=== PATIENT | male | born 1990 | race Caucasian/White ===

== ENCOUNTER 2016-09-18 00:36 | Emergency (ER) | payer OTHER ==
[2016-09-18] MEDS ORDERED: ONDANSETRON 4MG/2ML VIAL (J2405) As Ordered ONE (01:46)
[2016-09-18] MEDS ORDERED: ONDANSETRON 4 MG ORAL DISINTEGRATING TAB (S0181) As Ordered ONE (02:51)
--- NOTE | 2016-09-18 03:00 | EDDOCDS ---
Physician Documentation [facility] Name: Guillaume Joseph Age: 25 yrs Sex: Male : 1990 Arrival Date: 09/18/2016 Time: 00:36 Bed 8 Private MD: Disposition: 09/18 02:41 Critical Care: Critical care not applicable. pc Disposition: 09/18/16 02:42 Discharged to Home/Self Care. Impression: Other viral enteritis. - Condition is Stable. - Discharge Instructions: Clear Liquid Diet, Viral Gastroenteritis. - Prescriptions for ZOFRAN ODT 4 mg - dissolve 1 tablet by ORAL route 4 times per day As needed do not chew, do not swallow whole; 10 tablet. - Medication Reconciliation, Local Pharmacy Hours form. - Follow up: Dain Dumont [facility]; When: Today; Reason: Recheck today's complaints, Continuance of care. - Problem is an ongoing problem. - Symptoms have improved. HPI: 01:46 This 25 yrs old Male presents to ER via Walkin/Carried/Asstd with complaints pc of Nausea/Vomiting/Diarrhea. 01:46 The history is obtained from the patient. The patient presents with vomiting, diarrhea. pc The symptoms began He started with nausea and diarrhea 5 days ago but did not seek medical attention. He began to vomit last night which prompted his ED visit. He denies sick contacts, denies fevers or chills. He has only abdominal pain, described as cramps, just prior to emesis or diarrhea. The patient has not experienced similar symptoms in the past. The patient has not recently seen a physician. Historical: - Allergies: no known allergies; - Home Meds: 1. none - PMHx: none; - PSHx: none; - The history from nurses notes was reviewed: and I agree with what is documented. - Social history: Smoking status: Patient states was never smoker of tobacco. No barriers to communication noted, The patient speaks fluent Spanish, Speaks appropriately for age. - : The pt / caregiver states he / she is not on anticoagulants. Home medication list is obtained from the patient. - Hospitalizations: : No recent hospitalization is reported. - Exposure Risk Screening:: None identified. - Immunization history:: All immunizations up-to-date. - Family history: Not pertinent. - Social history:: the patient is a non-smoker, the patient drinks alcohol. ROS: 01:46 All systems are negative except if listed. The constitutional, cardiovascular, pc respiratory and neurological components are also addressed in the HPI. Exam: 01:46 General Appearance: alert, no acute distress. pc 01:46 ENT: ear, nose and throat normal, pharynx normal. 01:46 Neck: The exam reveals no acute abnormalities. ROM is normal and painless. No nuchal rigidity is noted.. 01:46 Respiratory: no respiratory distress, normal breath sounds, chest non-tender. 01:46 Cardiovascular: regular pulse rate, regular heart rhythm, normal heart sounds, equal and full pulses bilaterally. 01:46 Abdomen: soft, non-tender, no organomegaly, bowel sounds hyperactive. 01:46 Back: normal inspection. 01:46 Skin: skin color is normal, warm, dry. 01:46 Extremities: The extremities have a grossly normal appearance, are non-tender, without acute ROM abnormalities. 01:46 Neuro: oriented x 3, cranial nerves normal as tested, no motor deficits, no sensory deficits. Vital Signs: 00:45 Pulse 90; Resp 16; Temp 97.7(T); Pulse Ox 97% on R/A; Weight 92.99 kg / 205.01 lbs (R); dsf Height 5 ft. 10 in. (177.80 cm); Pain 8/10; 00:56 BP 122 / 71; kas2 02:58 BP 130 / 72; Pulse 85; Resp 18; Temp 98.1(O); Pulse Ox 99% on R/A; Pain 0/10; kas2 00:45 Body Mass Index 29.41 (92.99 kg, 177.80 cm) dsf MDM: 01:45 IV Saline Lock ordered. pc 01:45 NS 0.9% 500 ml IV at bolus once ordered. pc 01:45 Ondansetron 4 mg IVP once ordered. pc 01:46 Differential diagnosis: Gastroenteritis. Plan: meds, IVF. pc 02:33 Financial registration complete. hs2 02:41 Data reviewed: old medical records, vital signs, nurses notes. Test interpretation: pc none. The patient has been re-examined and re-evaluated. The patient's symptoms have markedly improved after treatment. Disposition: The historical points, examination findings, and any diagnostic results supporting the provided diagnosis, were discussed with the patient or legal guardian. The need for outpatient follow up with the provider listed on their discharge instructions was discussed. They were encouraged to return to [facility], or the nearest ED, if symptoms worsen/persist, or for any other questions/concerns. 02:41 Ondansetron ODT Oral Disintegrating Tablet 4 mg PO Per package directions; dispense 2 pc to go: 1 po q4h prn ordered. Administered Medications: 01:53 Drug: NS 0.9% 500 ml [sodium chloride 0.9 % intravenous solution] Route: IV; Rate: kas2 bolus; Site: left antecubital; 02:59 Follow up: IV Status: Completed infusion; IV Intake: 500ml kas2 01:53 Drug: Ondansetron 4 mg [ondansetron HCl 2 mg/mL intravenous solution (2 mL)] Route: kas2 IVP; Site: left antecubital; 02:58 Drug: Ondansetron ODT 4 mg [ondansetron 4 mg disintegrating tablet (1 tabs)] Route: PO; kas2 Signatures: Elliot Morrison MD MD pc Fuller, Desiree, RN RN dsf Rosemarie Vargas, [facility] Reg hs2 Lashonda Julio RN RN kas2 TERESAD
--- NOTE | 2016-09-18 03:00 | EDDOCDS ---
Nurse's Notes [facility] Name: Guillaume Joseph Age: 25 yrs Sex: Male : 1990 Arrival Date: 09/18/2016 Time: 00:36 Bed 8 Private MD: Diagnosis: Other viral enteritis Presentation: 09/18 00:43 Presenting complaint: Patient states: vomiting, diarrhea and nausea for the past week. dsf Risk factors: the patient reports not having a history of previous torsion. Adult Sepsis Screening:. Suicide/Homicide risk assessment- the patient denies having any suicidal and/or homicidal ideations and does not present with any other emotional, behavioral or mental health complaints. 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 Transition of care: patient was not received from another setting of care. 00:43 Method Of Arrival: Walkin/Carried/Asstd dsf 00:43 Acuity: ARCELIA Level 3 dsf Triage Assessment: 00:45 General: Appears in no apparent distress, Behavior is appropriate for age, cooperative. dsf Pain: Location: abdomen Pain currently is 8 out of 10 on a pain scale. Quality of pain is described as stinging. HIV screening NA for this visit active duty . GI: Reports diarrhea, nausea, vomiting. 00:48 GI: Pt is actively vomiting clear fluid. dsf Historical: - Allergies: no known allergies; - Home Meds: 1. none - PMHx: none; - PSHx: none; - The history from nurses notes was reviewed: and I agree with what is documented. - Social history: Smoking status: Patient states was never smoker of tobacco. No barriers to communication noted, The patient speaks fluent Greenlandic, Speaks appropriately for age. - : The pt / caregiver states he / she is not on anticoagulants. Home medication list is obtained from the patient. - Hospitalizations: : No recent hospitalization is reported. - Exposure Risk Screening:: None identified. - Immunization history:: All immunizations up-to-date. - Family history: Not pertinent. - Social history:: the patient is a non-smoker, the patient drinks alcohol. Screenin:01 Screening information is obtained from the patient. Fall risk: No risks identified. kas2 Assistance ADL's: requires no assistance with activities of daily living. Abuse/DV Screen: The patient / caregiver reports he/she is: not in a situation that causes fear, pain or injury. Nutritional screening: No deficits noted. Advance Directives: Currently, there is no health care proxy. There is no active DNR order. There is no living will. There is no Power of Strategic Procurement Manager. home support is adequate. Assessment: 00:56 General: Appears in no apparent distress, uncomfortable, well nourished, well groomed, kas2 Behavior is appropriate for age, cooperative. Pain: Location: abdomen Pain currently is 6 out of 10 on a pain scale. Neurological: Level of Consciousness is awake, alert, Oriented to person, place, time. Cardiovascular: Capillary refill < 3 seconds Heart tones S1 S2 present Rhythm is regular. Respiratory: Airway is patent Respiratory effort is even, unlabored, Respiratory pattern is regular, symmetrical, Breath sounds are clear bilaterally. GI: Abdomen is flat, non- distended Bowel sounds present X 4 quads. Abd is tender to palpation X 4 quads. Derm: Skin is intact, Skin is Skin is pink, warm & dry. Skin temperature is warm. 01:54 General: Patient laying in bed sleeping with at bedside. No apparent distress. kas2 Appears comfortable. Airway patent and respiratory effort even and unlabored. Call denny within reach. Will continue to monitor.. 02:28 General: Patient states he is feeling much better and is no longer nauseated. Denies kas2 abdominal pain at this time. Call denny within reach. Will continue to monitor.. Vital Signs: 00:45 Pulse 90; Resp 16; Temp 97.7(T); Pulse Ox 97% on R/A; Weight 92.99 kg (R); Height 5 ft. dsf 10 in. (177.80 cm); Pain 8/10; 00:56 BP 122 / 71; kas2 02:58 BP 130 / 72; Pulse 85; Resp 18; Temp 98.1(O); Pulse Ox 99% on R/A; Pain 0/10; kas2 00:45 Body Mass Index 29.41 (92.99 kg, 177.80 cm) dsf Vitals: 00:45 Log In Time: September 18, 2016 at 00:36. dsf ED Course: 00:37 Patient visited by Silvano Sherwood Reg. pm4 00:37 Patient moved to Waiting pm4 00:44 Triage Initiated dsf 00:49 Julio,Lashonda,RN is Primary Nurse. dsf 00:49 Patient moved to 8 dsf 01:01 Patient visited by Lashonda Julio RN. kas2 01:32 Patient visited by Lashonda Julio RN. kas2 01:40 Elliot Morrison MD is Attending Physician. pc 01:45 Patient visited by Elliot Morrison MD. pc 01:54 Inserted saline lock: 20 gauge in left antecubital area and blood collected. The kas2 patient tolerated the procedure well. No procedures done that require assistance. 01:55 Patient visited by Lashonda Julio RN. kas2 02:28 Patient visited by Lashonda Julio RN. kas2 02:30 Patient visited by Lashonda Julio RN. kas2 02:[facility] pc 02:59 Discontinued IV bleeding controlled, pressure dressing applied, No redness/swelling at kas2 site. Administered Medications: 01:53 Drug: NS 0.9% 500 ml [sodium chloride 0.9 % intravenous solution] Route: IV; Rate: kas2 bolus; Site: left antecubital; 02:59 Follow up: IV Status: Completed infusion; IV Intake: 500ml kas2 01:53 Drug: Ondansetron 4 mg [ondansetron HCl 2 mg/mL intravenous solution (2 mL)] Route: kas2 IVP; Site: left antecubital; 02:58 Drug: Ondansetron ODT 4 mg [ondansetron 4 mg disintegrating tablet (1 tabs)] Route: PO; kas2 Intake: 02:59 IV: 500.00ml; Total: 500.00ml. kas2 Order Results: There are currently no results for this order. Outcome: 02:42 Discharge ordered by Provider. pc 02:59 Patient left the ED. kas2 Signatures: Elliot Morrison MD MD pc Fuller, Desiree, RN RN dsf Lashonda Julio RN RN [facility] Silvano Sherwood, Reg Reg pm4 Corrections: (The following items were deleted from the chart) 00:48 00:43 Acuity: ARCELIA Level 4 dsf dsf MTDD
--- NOTE | 2016-09-20 04:00 | EDDOCDS ---
Physician Documentation [facility] Name: Guillaume Joseph Age: 25 yrs Sex: Male : 1990 Arrival Date: 09/18/2016 Time: 00:36 Bed 8 Private MD: Disposition: 09/18 02:41 Critical Care: Critical care not applicable. pc Disposition: 09/18/16 02:42 Discharged to Home/Self Care. Impression: Other viral enteritis. - Condition is Stable. - Discharge Instructions: Clear Liquid Diet, Viral Gastroenteritis. - Prescriptions for ZOFRAN ODT 4 mg - dissolve 1 tablet by ORAL route 4 times per day As needed do not chew, do not swallow whole; 10 tablet. - Medication Reconciliation, Local Pharmacy Hours form. - Follow up: Dain Dumont [facility]; When: Today; Reason: Recheck today's complaints, Continuance of care. - Problem is an ongoing problem. - Symptoms have improved. HPI: 01:46 This 25 yrs old Male presents to ER via Walkin/Carried/Asstd with complaints pc of Nausea/Vomiting/Diarrhea. 01:46 The history is obtained from the patient. The patient presents with vomiting, diarrhea. pc The symptoms began He started with nausea and diarrhea 5 days ago but did not seek medical attention. He began to vomit last night which prompted his ED visit. He denies sick contacts, denies fevers or chills. He has only abdominal pain, described as cramps, just prior to emesis or diarrhea. The patient has not experienced similar symptoms in the past. The patient has not recently seen a physician. Historical: - Allergies: no known allergies; - Home Meds: 1. none - PMHx: none; - PSHx: none; - The history from nurses notes was reviewed: and I agree with what is documented. - Social history: Smoking status: Patient states was never smoker of tobacco. No barriers to communication noted, The patient speaks fluent Paraguayan, Speaks appropriately for age. - : The pt / caregiver states he / she is not on anticoagulants. Home medication list is obtained from the patient. - Hospitalizations: : No recent hospitalization is reported. - Exposure Risk Screening:: None identified. - Immunization history:: All immunizations up-to-date. - Family history: Not pertinent. - Social history:: the patient is a non-smoker, the patient drinks alcohol. ROS: 01:46 All systems are negative except if listed. The constitutional, cardiovascular, pc respiratory and neurological components are also addressed in the HPI. Exam: 01:46 General Appearance: alert, no acute distress. pc 01:46 ENT: ear, nose and throat normal, pharynx normal. 01:46 Neck: The exam reveals no acute abnormalities. ROM is normal and painless. No nuchal rigidity is noted.. 01:46 Respiratory: no respiratory distress, normal breath sounds, chest non-tender. 01:46 Cardiovascular: regular pulse rate, regular heart rhythm, normal heart sounds, equal and full pulses bilaterally. 01:46 Abdomen: soft, non-tender, no organomegaly, bowel sounds hyperactive. 01:46 Back: normal inspection. 01:46 Skin: skin color is normal, warm, dry. 01:46 Extremities: The extremities have a grossly normal appearance, are non-tender, without acute ROM abnormalities. 01:46 Neuro: oriented x 3, cranial nerves normal as tested, no motor deficits, no sensory deficits. Vital Signs: 00:45 Pulse 90; Resp 16; Temp 97.7(T); Pulse Ox 97% on R/A; Weight 92.99 kg / 205.01 lbs (R); dsf Height 5 ft. 10 in. (177.80 cm); Pain 8/10; 00:56 BP 122 / 71; kas2 02:58 BP 130 / 72; Pulse 85; Resp 18; Temp 98.1(O); Pulse Ox 99% on R/A; Pain 0/10; kas2 00:45 Body Mass Index 29.41 (92.99 kg, 177.80 cm) dsf MDM: 01:45 IV Saline Lock ordered. pc 01:45 NS 0.9% 500 ml IV at bolus once ordered. pc 01:45 Ondansetron 4 mg IVP once ordered. pc 01:46 Differential diagnosis: Gastroenteritis. Plan: meds, IVF. pc 02:33 Financial registration complete. hs2 02:41 Data reviewed: old medical records, vital signs, nurses notes. Test interpretation: pc none. The patient has been re-examined and re-evaluated. The patient's symptoms have markedly improved after treatment. Disposition: The historical points, examination findings, and any diagnostic results supporting the provided diagnosis, were discussed with the patient or legal guardian. The need for outpatient follow up with the provider listed on their discharge instructions was discussed. They were encouraged to return to [facility], or the nearest ED, if symptoms worsen/persist, or for any other questions/concerns. 02:41 Ondansetron ODT Oral Disintegrating Tablet 4 mg PO Per package directions; dispense 2 pc to go: 1 po q4h prn ordered. 03:12 REPLACED BY [facility] Payment Agreement was scanned into [employer] and attached to record. hs2 Administered Medications: 01:53 Drug: NS 0.9% 500 ml [sodium chloride 0.9 % intravenous solution] Route: IV; Rate: kas2 bolus; Site: left antecubital; 02:59 Follow up: IV Status: Completed infusion; IV Intake: 500ml kas2 01:53 Drug: Ondansetron 4 mg [ondansetron HCl 2 mg/mL intravenous solution (2 mL)] Route: kas2 IVP; Site: left antecubital; 02:58 Drug: Ondansetron ODT 4 mg [ondansetron 4 mg disintegrating tablet (1 tabs)] Route: PO; kas2 Signatures: Elliot Morrison MD MD pc Fuller, Desiree, RN RN dsf Rosemarie Vargas, Reg Reg hs2 Lashonda Julio RN RN kas2 The chart was reviewed and I authenticate all verbal orders and agree with the evaluation and treatment provided.Attachments: 03:12 REPLACED BY [facility] Payment Agreement hs2 Chart Complete MTDD
--- NOTE | 2016-09-20 04:00 | EDDOCDS ---
Physician Documentation [facility] Name: Guillaume Joseph Age: 25 yrs Sex: Male : 1990 Arrival Date: 09/18/2016 Time: 00:36 Bed 8 Private MD: Disposition: 09/18 02:41 Critical Care: Critical care not applicable. pc Disposition: 09/18/16 02:42 Discharged to Home/Self Care. Impression: Other viral enteritis. - Condition is Stable. - Discharge Instructions: Clear Liquid Diet, Viral Gastroenteritis. - Prescriptions for ZOFRAN ODT 4 mg - dissolve 1 tablet by ORAL route 4 times per day As needed do not chew, do not swallow whole; 10 tablet. - Medication Reconciliation, Local Pharmacy Hours form. - Follow up: Dain Dumont [facility]; When: Today; Reason: Recheck today's complaints, Continuance of care. - Problem is an ongoing problem. - Symptoms have improved. HPI: 01:46 This 25 yrs old Male presents to ER via Walkin/Carried/Asstd with complaints pc of Nausea/Vomiting/Diarrhea. 01:46 The history is obtained from the patient. The patient presents with vomiting, diarrhea. pc The symptoms began He started with nausea and diarrhea 5 days ago but did not seek medical attention. He began to vomit last night which prompted his ED visit. He denies sick contacts, denies fevers or chills. He has only abdominal pain, described as cramps, just prior to emesis or diarrhea. The patient has not experienced similar symptoms in the past. The patient has not recently seen a physician. Historical: - Allergies: no known allergies; - Home Meds: 1. none - PMHx: none; - PSHx: none; - The history from nurses notes was reviewed: and I agree with what is documented. - Social history: Smoking status: Patient states was never smoker of tobacco. No barriers to communication noted, The patient speaks fluent Swedish, Speaks appropriately for age. - : The pt / caregiver states he / she is not on anticoagulants. Home medication list is obtained from the patient. - Hospitalizations: : No recent hospitalization is reported. - Exposure Risk Screening:: None identified. - Immunization history:: All immunizations up-to-date. - Family history: Not pertinent. - Social history:: the patient is a non-smoker, the patient drinks alcohol. ROS: 01:46 All systems are negative except if listed. The constitutional, cardiovascular, pc respiratory and neurological components are also addressed in the HPI. Exam: 01:46 General Appearance: alert, no acute distress. pc 01:46 ENT: ear, nose and throat normal, pharynx normal. 01:46 Neck: The exam reveals no acute abnormalities. ROM is normal and painless. No nuchal rigidity is noted.. 01:46 Respiratory: no respiratory distress, normal breath sounds, chest non-tender. 01:46 Cardiovascular: regular pulse rate, regular heart rhythm, normal heart sounds, equal and full pulses bilaterally. 01:46 Abdomen: soft, non-tender, no organomegaly, bowel sounds hyperactive. 01:46 Back: normal inspection. 01:46 Skin: skin color is normal, warm, dry. 01:46 Extremities: The extremities have a grossly normal appearance, are non-tender, without acute ROM abnormalities. 01:46 Neuro: oriented x 3, cranial nerves normal as tested, no motor deficits, no sensory deficits. Vital Signs: 00:45 Pulse 90; Resp 16; Temp 97.7(T); Pulse Ox 97% on R/A; Weight 92.99 kg / 205.01 lbs (R); dsf Height 5 ft. 10 in. (177.80 cm); Pain 8/10; 00:56 BP 122 / 71; kas2 02:58 BP 130 / 72; Pulse 85; Resp 18; Temp 98.1(O); Pulse Ox 99% on R/A; Pain 0/10; kas2 00:45 Body Mass Index 29.41 (92.99 kg, 177.80 cm) dsf MDM: 01:45 IV Saline Lock ordered. pc 01:45 NS 0.9% 500 ml IV at bolus once ordered. pc 01:45 Ondansetron 4 mg IVP once ordered. pc 01:46 Differential diagnosis: Gastroenteritis. Plan: meds, IVF. pc 02:33 Financial registration complete. hs2 02:41 Data reviewed: old medical records, vital signs, nurses notes. Test interpretation: pc none. The patient has been re-examined and re-evaluated. The patient's symptoms have markedly improved after treatment. Disposition: The historical points, examination findings, and any diagnostic results supporting the provided diagnosis, were discussed with the patient or legal guardian. The need for outpatient follow up with the provider listed on their discharge instructions was discussed. They were encouraged to return to [facility], or the nearest ED, if symptoms worsen/persist, or for any other questions/concerns. 02:41 Ondansetron ODT Oral Disintegrating Tablet 4 mg PO Per package directions; dispense 2 pc to go: 1 po q4h prn ordered. 03:12 [facility] Payment Agreement was scanned into [employer] and attached to record. hs2 Administered Medications: 01:53 Drug: NS 0.9% 500 ml [sodium chloride 0.9 % intravenous solution] Route: IV; Rate: kas2 bolus; Site: left antecubital; 02:59 Follow up: IV Status: Completed infusion; IV Intake: 500ml kas2 01:53 Drug: Ondansetron 4 mg [ondansetron HCl 2 mg/mL intravenous solution (2 mL)] Route: kas2 IVP; Site: left antecubital; 02:58 Drug: Ondansetron ODT 4 mg [ondansetron 4 mg disintegrating tablet (1 tabs)] Route: PO; kas2 Signatures: Elliot Morrison MD MD pc Fuller, Desiree, RN RN dsf Rosemarie Vargas, Reg Reg hs2 Lashonda Julio RN RN kas2 The chart was reviewed and I authenticate all verbal orders and agree with the evaluation and treatment provided.Attachments: 03:12 [facility] Payment Agreement hs2 Chart Complete MTDD
--- NOTE | 2016-09-20 04:00 | EDDOCDS ---
Nurse's Notes [facility] Name: Guillaume Joseph Age: 25 yrs Sex: Male : 1990 Arrival Date: 09/18/2016 Time: 00:36 Bed 8 Private MD: Diagnosis: Other viral enteritis Presentation: 09/18 00:43 Presenting complaint: Patient states: vomiting, diarrhea and nausea for the past week. dsf Risk factors: the patient reports not having a history of previous torsion. Adult Sepsis Screening:. Suicide/Homicide risk assessment- the patient denies having any suicidal and/or homicidal ideations and does not present with any other emotional, behavioral or mental health complaints. 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 Transition of care: patient was not received from another setting of care. 00:43 Method Of Arrival: Walkin/Carried/Asstd dsf 00:43 Acuity: ARCELIA Level 3 dsf Triage Assessment: 00:45 General: Appears in no apparent distress, Behavior is appropriate for age, cooperative. dsf Pain: Location: abdomen Pain currently is 8 out of 10 on a pain scale. Quality of pain is described as stinging. HIV screening NA for this visit active duty . GI: Reports diarrhea, nausea, vomiting. 00:48 GI: Pt is actively vomiting clear fluid. dsf Historical: - Allergies: no known allergies; - Home Meds: 1. none - PMHx: none; - PSHx: none; - The history from nurses notes was reviewed: and I agree with what is documented. - Social history: Smoking status: Patient states was never smoker of tobacco. No barriers to communication noted, The patient speaks fluent Portuguese, Speaks appropriately for age. - : The pt / caregiver states he / she is not on anticoagulants. Home medication list is obtained from the patient. - Hospitalizations: : No recent hospitalization is reported. - Exposure Risk Screening:: None identified. - Immunization history:: All immunizations up-to-date. - Family history: Not pertinent. - Social history:: the patient is a non-smoker, the patient drinks alcohol. Screenin:01 Screening information is obtained from the patient. Fall risk: No risks identified. kas2 Assistance ADL's: requires no assistance with activities of daily living. Abuse/DV Screen: The patient / caregiver reports he/she is: not in a situation that causes fear, pain or injury. Nutritional screening: No deficits noted. Advance Directives: Currently, there is no health care proxy. There is no active DNR order. There is no living will. There is no Power of Occupational Health Rn. home support is adequate. Assessment: 00:56 General: Appears in no apparent distress, uncomfortable, well nourished, well groomed, kas2 Behavior is appropriate for age, cooperative. Pain: Location: abdomen Pain currently is 6 out of 10 on a pain scale. Neurological: Level of Consciousness is awake, alert, Oriented to person, place, time. Cardiovascular: Capillary refill < 3 seconds Heart tones S1 S2 present Rhythm is regular. Respiratory: Airway is patent Respiratory effort is even, unlabored, Respiratory pattern is regular, symmetrical, Breath sounds are clear bilaterally. GI: Abdomen is flat, non- distended Bowel sounds present X 4 quads. Abd is tender to palpation X 4 quads. Derm: Skin is intact, Skin is Skin is pink, warm & dry. Skin temperature is warm. 01:54 General: Patient laying in bed sleeping with at bedside. No apparent distress. kas2 Appears comfortable. Airway patent and respiratory effort even and unlabored. Call denny within reach. Will continue to monitor.. 02:28 General: Patient states he is feeling much better and is no longer nauseated. Denies kas2 abdominal pain at this time. Call denny within reach. Will continue to monitor.. Vital Signs: 00:45 Pulse 90; Resp 16; Temp 97.7(T); Pulse Ox 97% on R/A; Weight 92.99 kg (R); Height 5 ft. dsf 10 in. (177.80 cm); Pain 8/10; 00:56 BP 122 / 71; kas2 02:58 BP 130 / 72; Pulse 85; Resp 18; Temp 98.1(O); Pulse Ox 99% on R/A; Pain 0/10; kas2 00:45 Body Mass Index 29.41 (92.99 kg, 177.80 cm) dsf Vitals: 00:45 Log In Time: September 18, 2016 at 00:36. dsf ED Course: 00:37 Patient visited by Silvano Sherwood Reg. pm4 00:37 Patient moved to Waiting pm4 00:44 Triage Initiated dsf 00:49 Julio,Lashonda,RN is Primary Nurse. dsf 00:49 Patient moved to 8 dsf 01:01 Patient visited by Lashonda Julio RN. kas2 01:32 Patient visited by Lashonda Julio RN. kas2 01:40 Elliot Morrison MD is Attending Physician. pc 01:45 Patient visited by Elliot Morrison MD. pc 01:54 Inserted saline lock: 20 gauge in left antecubital area and blood collected. The kas2 patient tolerated the procedure well. No procedures done that require assistance. 01:55 Patient visited by Lashonda Julio RN. kas2 02:28 Patient visited by Lashonda Julio RN. kas2 02:30 Patient visited by Lashonda Julio RN. kas2 02:42 [facility] pc 02:59 Discontinued IV bleeding controlled, pressure dressing applied, No redness/swelling at kas2 site. 03:10 Patient name changed from Guillaume\S\A\S\Joseph\S\ to Guillaume\S\Lucio\S\Joseph. EDMS 03:12 [facility] Payment Agreement was scanned into [employer] and attached to record. hs2 Administered Medications: 01:53 Drug: NS 0.9% 500 ml [sodium chloride 0.9 % intravenous solution] Route: IV; Rate: kas2 bolus; Site: left antecubital; 02:59 Follow up: IV Status: Completed infusion; IV Intake: 500ml kas2 01:53 Drug: Ondansetron 4 mg [ondansetron HCl 2 mg/mL intravenous solution (2 mL)] Route: kas2 IVP; Site: left antecubital; 02:58 Drug: Ondansetron ODT 4 mg [ondansetron 4 mg disintegrating tablet (1 tabs)] Route: PO; kas2 Intake: 02:59 IV: 500.00ml; Total: 500.00ml. kas2 Order Results: There are currently no results for this order. Outcome: 02:42 Discharge ordered by Provider. pc 02:59 Patient left the ED. kas2 Signatures: Dispatcher [employer] EDMS Elliot Morrison MD MD pc Fuller, Desiree, RN RN dsf Rosemarie Vargas, Reg Reg hs2 Lashonda Julio RN RN kas2 Silvano Sherwood, Reg Reg pm4 Corrections: (The following items were deleted from the chart) 00:48 00:43 Acuity: ARCELIA Level 4 dsf dsf Chart Complete MTDD
== END 2016-09-18 02:59 | disposition home or self-care (01) ==
LOC: M ED 00:36
DX: A08.4 Viral intestinal infection, unspecified (principal)
CPT/HCPCS: 36415; 96361; 96374; 99284; J2405